=== PATIENT | male | born 1960 | race Hispanic/Latino ===

== ENCOUNTER 2022-07-21 09:00 | Observation (INO) | payer BC, OTHER ==
[~2022-07-21] VITALS: Ht 167.6 cm; Wt 73.9 kg
[2022-07-21 10:30] LABS: BASOPHILS % (AUTO) 0.2 % (0.0-5.0); EOSINOPHILS % (AUTO) 3.1 % (0.0-8.0); HEMATOCRIT 42.4 % (42-54); LYMPHOCYTES % (AUTO) 26.3 % (21.0-51.0); MEAN CORPUSCULAR HEMOGLOBIN 30.5 pg (27.0-33.0); MEAN CORPUSCULAR HGB CONC 33.3 g/dL (32.0-36.0); MEAN CORPUSCULAR VOLUME 91.6 fL (79-99); MONOCYTES % (AUTO) 9.2 % (3.0-13.0); PLATELET COUNT (AUTO) 148 K/uL (130-400); RED BLOOD CELL COUNT(AUTO) 4.63 MIL/uL (4.50-6.20); RED CELL DISTRIBUTION WIDTH 13.8 % (11.0-15.5); WHITE BLOOD COUNT (AUTO) 4.3 K/uL (4.8-10.8)
[2022-07-21 10:58] LABS: POTASSIUM 4.2 mmol/L (3.5-5.1)
[2022-07-22 13:52] VITALS: BP 129/78
[2022-07-22] MEDS ORDERED: ATOR10 PO (14:24)
[2022-07-22] MEDS ORDERED: FERR-82 PO (14:24)
[2022-07-22] MEDS ORDERED: DOCU100C33 PO (14:24)
[2022-07-22] MEDS ORDERED: DULA1.5P SQ (14:24)
[2022-07-22] MEDS ORDERED: EMPA10TA PO (14:24)
[2022-07-22] MEDS ORDERED: LISI10TA24 PO (14:24)
[2022-07-22] MEDS ORDERED: ASCO500C18 PO (14:24)
[2022-07-22] MEDS ORDERED: FOLIC ACID PO (14:24)
[2022-07-22] MEDS ORDERED: FISH1CAP27 PO (14:24)
[2022-07-22] MEDS ORDERED: METF-527 PO (14:24)
[2022-07-22] MEDS ORDERED: METO-391 PO (14:24)
[2022-07-22] MEDS ORDERED: CITA-107 PO (14:24)
[2022-07-22] MEDS ORDERED: ALPR0.5T8 PO (14:24)
[2022-07-22] MEDS ORDERED: GABA300C PO (14:24)
[2022-07-22] MEDS ORDERED: VITAMIN B12 PO (14:24)
[2022-07-22] MEDS ORDERED: OMEP40CA21 PO (14:24)
[2022-07-24] VITALS (23 sets, daily range): BP systolic 113–147; BP diastolic 49–88
[2022-07-24] MEDS ORDERED: CEFAZOLIN SODIUM 1 GM VIAL ONE ×2 (06:29→06:50)
[2022-07-24] MEDS ORDERED: 0.9%NACL 1000ML 1,000 ML IV ONE (06:30)
[2022-07-24] MEDS ORDERED: BUPIVACAINE/EPI/PF 0.25% 30ML VIAL IJ ONE (06:50)
[2022-07-24] MEDS ORDERED: THROMBIN-JMI 20000 UNIT KIT TP ONE (06:51)
[2022-07-24] MEDS ORDERED: MORPHINE PF 100MG/10ML AMP IV ONE (06:51)
[2022-07-24] MEDS ORDERED: BUPIVACAINE/EPI/PF 0.5% 30ML VIAL IJ ONE (06:52)
[2022-07-24] MEDS ORDERED: MIDAZOLAM HCL 1 MG/ML 2ML VIAL ONE (07:08)
[2022-07-24] MEDS ORDERED: GLYCOPYRROLATE 1 MG/5 ML SYRINGE ONE (07:08)
[2022-07-24] MEDS ORDERED: ROCURONIUM 10MG/1ML SYR 10 MG/ML ML ONE (07:08)
[2022-07-24] MEDS ORDERED: PROPOFOL 10 MG/ML 20ML VIAL IV ONE (07:08)
[2022-07-24] MEDS ORDERED: FENTANYL CITRATE PF 50 MCG/1 ML 2ML VIAL ONE (07:09)
[2022-07-24] MEDS ORDERED: PHENYLEPHRINE HCL 10 MG/ML 1ML VIAL IV ONE (07:09)
[2022-07-24] MEDS ORDERED: LIDOCAINE PF 100MG/5ML (2%) SYRINGE 5ML ONE (07:09)
[2022-07-24] MEDS ORDERED: ONDANSETRON 4MG INJ ONE (08:32)
[2022-07-24] MEDS ORDERED: EPHEDRINE SULFATE 50 MG/ML AMPULE ONE (09:01)
[2022-07-24] MEDS ORDERED: DEXAMETHASONE SOD PHOSPHATE 4 MG/ML 1ML VIAL ONE (10:33)
[2022-07-24] MEDS ORDERED: ALPRAZOLAM 0.5 MG TABLET PO PRN (11:00)
[2022-07-24] MEDS ORDERED: MORPHINE 2 MG SYG IVP PRN (11:00)
[2022-07-24] MEDS: DEXAMETHASONE SOD PHOSPHATE 4 MG/ML 1ML VIAL IVP SCH ×3 (11:00→23:13)
[2022-07-24] MEDS ORDERED: PROMETHAZINE HCL 25 MG/ML 1ML AMPULE IM PRN (11:00)
[2022-07-24] MEDS: CEFAZOLIN SODIUM 1 GM VIAL IVP SCH ×2 (11:00→20:00)
[2022-07-24] MEDS ORDERED: 0.9%NACL 10ML VIAL IVP PRN (11:00)
[2022-07-24] MEDS ORDERED: MEPERIDINE-PF 25 MG/ML SYG ONE ×2 (11:03→11:17)
[2022-07-24] MEDS: HYDROCODONE/ACETAMINOPHEN 5/325 MG TAB PO PRN ×3 (12:43→21:07)
[2022-07-24] MEDS: METFORMIN HCL 500 MG TAB.SR.24H PO SCH (16:55)
[2022-07-24] MEDS: LACTATED RINGERS 1000ML 1,000 ML IV SCH ×2 (16:57→23:24)
[2022-07-24] MEDS: FISH OIL 1000 MG/CAP PO SCH (20:11)
[2022-07-24] MEDS: ASCORBIC ACID 500 MG TAB PO SCH (20:11)
[2022-07-24] MEDS ORDERED: DOCUSATE SODIUM 100 MG CAP PO SCH (21:00)
[2022-07-24] MEDS ORDERED: ATORVASTATIN 10 MG TABLET PO SCH (21:00)
[2022-07-24] MEDS ORDERED: FOLIC ACID 1 MG TABLET PO SCH (21:00)
[2022-07-24] MEDS ORDERED: GABAPENTIN 300 MG CAPSULE PO SCH (21:00)
[2022-07-24] MEDS ORDERED: CYANOCOBALAMIN (VITAMIN B-12) 1,000 MCG TABLET PO SCH (21:00)
[2022-07-24] MEDS ORDERED: CITALOPRAM 20 MG TABLET PO SCH (21:00)
[2022-07-24] MEDS ORDERED: METOPROLOL SUCCINATE 50 MG TAB.SR.24H PO SCH (21:00)
[2022-07-24] MEDS: INSULIN HUMULIN R 100 UNIT/ML 3ML SQ SCH (21:24)
[2022-07-25] VITALS: BP_SYST 109; BP_SYST 113; BP_DIAS 66; BP_DIAS 75
[2022-07-25 03:55] VITALS: BP 107/64
[2022-07-25] MEDS: CEFAZOLIN SODIUM 1 GM VIAL IVP SCH (04:03)
[2022-07-25] MEDS: DEXAMETHASONE SOD PHOSPHATE 4 MG/ML 1ML VIAL IVP SCH (04:03)
[2022-07-25] MEDS: HYDROCODONE/ACETAMINOPHEN 5/325 MG TAB PO PRN (05:07)
[2022-07-25] MEDS: INSULIN HUMULIN R 100 UNIT/ML 3ML SQ SCH (06:03)
[2022-07-25 07:30] VITALS: BP 115/74
[2022-07-25] MEDS: METFORMIN HCL 500 MG TAB.SR.24H PO SCH (07:57)
[2022-07-25] MEDS: ASCORBIC ACID 500 MG TAB PO SCH (07:57)
[2022-07-25] MEDS: FISH OIL 1000 MG/CAP PO SCH (07:57)
[2022-07-25] MEDS ORDERED: **HM**JARDIANCE 10MG PO SCH (09:00)
[2022-07-25] MEDS ORDERED: LISINOPRIL 10 MG TABLET PO SCH (09:00)
[2022-07-25] MEDS ORDERED: PANTOPRAZOLE 40 MG TAB DR PO SCH (09:00)
[2022-07-31] MEDS ORDERED: **HM**TRULICITY 1.5MG SQ SCH (09:00)
== END 2022-07-25 10:32 | disposition home or self-care (01) ==
LOC: EDSTATUS 09:00 → DAHIP 07-24 05:56 → 4BH 07-24 11:43
PROVIDERS: ADMIT Neurological Surgery; ATTEND Neurological Surgery
DX: M48.061 Spinal stenosis, lumbar region without neurogenic claudication (principal); Z20.822 Contact with and (suspected) exposure to COVID-19; E11.42 Type 2 diabetes mellitus with diabetic polyneuropathy; G47.33 Obstructive sleep apnea (adult) (pediatric); I10 Essential (primary) hypertension; E78.5 Hyperlipidemia, unspecified; K21.9 Gastro-esophageal reflux disease without esophagitis; Z79.899 Other long term (current) drug therapy
CPT/HCPCS: 80051; 85025; 87426; 36415; 63047; 63048 ×3; 96374; 96376 ×2; 96372; 96375; 82948 ×5; 72020; G0378 ×23; G0379; A4510; A4663; J7120 ×2; A4344; J3010; J0690 ×4; J3490 ×4; J7030; J2001; J2250; J2704; J2274; J2405; J1100 ×4; J2175 ×2; J2370; J1815; A4649 ×2; A4215; A4223; A4222; A4221; A4600

== ENCOUNTER 2025-08-19 15:02 | Observation (INO) | payer BC, MEDICARE, OTHER ==
[~2025-08-19] VITALS: Ht 167.6 cm; Wt 66.2 kg
[~2025-08-19 15:02] MED LIST: ALPR0.5T8 PO; ASCO500C18 PO; ATOR10 PO; CITA-107 PO; DOCU100C33 PO; DULA1.5P SQ; EMPA10TA PO; FERR-82 PO; FISH1CAP27 PO; FOLIC ACID PO; GABA300C PO; LISI10TA24 PO; METF-527 PO; METO-391 PO; OMEP40CA21 PO; VITAMIN B12 PO
[2025-08-19] MEDS ORDERED: 0.9%NACL 1000ML 1,000 ML IV ONE (15:30)
[2025-08-19] MEDS ORDERED: FAMOTIDINE 20MG VIAL IV ONE (15:30)
[2025-08-19] MEDS: FAMOTIDINE 20MG VIAL IV ONE (15:37)
[2025-08-19] MEDS: 0.9%NACL 1000ML 1,000 ML IV ONE (15:37)
--- NOTE | 2025-08-19 16:21 | EKG ---
[facility] Test Date: 2025-08-19 Test Time: 16:13:32 Pat Name: JACKI SIMMONS Department: ED Room: 430 Gender: M Healthcare Administrator: [id number] : [id number] Requested By: LEANA COURTNEY Order Number: [id number] Reading MD: Brian Chatterjee Measurements Intervals [place] Rate: 101 P: 53 NH: 148 QRS: -21 QRSD: 111 T: 54 QT: 377 QTc: 488 Interpretive Statements Sinus tachycardia No previous ECG available for comparison Electronically Signed On 08-21-2025 12:49:26 CDT by Brian Chatterjee Please click the below link to view image of tracing.
[2025-08-19 16:28] LABS: IMMATURE GRANULOCYTE ABSOLUTE 0.02 K/uL (0-1); NUCLEATED RED BLOOD CELLS 0.0 % (0.0-0.19); PLATELET COUNT (AUTO) 185 K/uL (130-400); RED BLOOD CELL COUNT(AUTO) 5.17 MIL/uL (4.50-6.20); RED CELL DISTRIBUTION WIDTH 13.2 % (11.0-15.5); WHITE BLOOD COUNT (AUTO) 3.6 K/uL (4.8-10.8)
[2025-08-19 16:47] LABS: CREATININE 1.2 mg/dL (0.5-1.3); GLOMERULAR FILTR. RATE CALC 66.0 mL/min (>90); GLUCOSE,RANDOM 140.0 mg/dL (70-105); SODIUM SERUM 144.0 mmol/L (136-145); UREA NITROGEN, BLOOD 23.0 mg/dL (7-18)
--- NOTE | 2025-08-19 16:48 | NUR ---
PT ONE BOUT OF EMISIS AND REPORTING ABD DISCOMFORT AFTERWARD 4 MG ONDANSATRON ADMIN NO FURTHER NAUSEA
--- NOTE | 2025-08-19 17:38 | ERN ---
General Chief Complaint: Allergic Reaction Stated Complaint: BEE STINGS Time Seen by MD: 15:18 Time Seen by Midlevel: 15:18 Source: patient History of Present Illness Initial Comments 65-year-old male presents to the emergency department for he sustained multiple bee stings the face and upper torso. Patient estimates about 50 bee stings. On arrival the patient reports feeling nauseous Allergies: Coded Allergies: No Known Drug Allergies (Unverified Allergy, Unknown, 07/22/22) Home Meds Reported Medications Alprazolam (Alprazolam) 0.5 Mg Tablet, 0.5 MG PO TID PRN for ANXIETY, TAB 07/22/22 Docusate Sodium (Docusate Sodium) 100 Mg Capsule, 100 MG PO HS, CAP 07/22/22 Gabapentin (Neurontin) 300 Mg Capsule, 300 MG PO HS, CAP 07/22/22 [Vitamin B12] No Conflict Check, 500 MCG PO HS 07/22/22 [Folic Acid] No Conflict Check, 1 MG PO HS 07/22/22 Citalopram Hydrobromide (Citalopram HBr) 20 Mg Tablet, 20 MG PO HS, TAB 07/22/22 Metoprolol Succinate (Metoprolol Succinate) 50 Mg Tab.er.24h, 50 MG PO HS, TAB 07/22/22 Dulaglutide (Trulicity) 1.5 Mg/0.5 Ml Pen.injctr, 1.5 MG SQ QWEEK EVERY 07/22/22 Empagliflozin (Jardiance) 10 Mg Tablet, 10 MG PO DAILY, TAB 07/22/22 Ascorbic Acid (Vitamin C) 500 Mg Capsule, 500 MG PO BID, CAP 07/22/22 [place]-3 Fatty Acids/Fish Oil ([place] 3 1,000 mg Softgel) 1 Each Capsule, 1 EACH PO BID, CAP 07/22/22 Ferrous Sulfate (Iron) 325 Mg Tablet, 325 MG PO BID, TAB 07/22/22 Omeprazole (Omeprazole) 40 Mg Capsule.dr, 40 MG PO DAILY, CAP 07/22/22 Metformin HCl (Metformin HCl ER) 1,000 Mg Tab.er.24, 1000 MG PO BID 07/22/22 Atorvastatin Calcium (LIPITOR) 10 Mg Tab, 10 MG PO HS, TAB 07/22/22 Lisinopril (Lisinopril) 10 Mg Tablet, 10 MG PO DAILY, TAB 07/22/22 Past Medical History Past Medical History: Diabetes-Type II, Hypertension Past Surgical History: Other Surgical History Other: BACK SURGERY. HERNIA REPAIR. ARM SURGERY ROS Dictation CONSTITUTIONAL: Negative except for HPI HEAD/FACE: Negative except for HPI EENT: Negative except for HPI RESPIRATORY: Negative except for HPI GASTROINTESTINAL/ABDOMINAL: Negative except for HPI GENITOURINARY: Negative except for HPI MUSCULOSKELETAL: Negative except for HPI INTEGUMENTARY: Negative except for HPI NEUROLOGICAL/PSYCH: Negative except for HPI HEMATOLOGIC/LYMPHATIC: Negative except for HPI All Systems Negative, Except as noted above. 13 point review of systems assessed and all negative except for above. Physical Exam Physical Exam Dictation Vital Signs reviewed General Appearance: Alert, oriented x 3, no acute distress, well developed, nourished. Head and Face: non-traumatic. Eyes: PERRL, pink conjunctivas, eyelid no trauma, anterior chamber with arcus senilis. Ears: Pinnas intact and no signs of trauma or erythema ear canals clear and no discharge TM no erythema Nose: No discharge, no bleeding. Oropharynx: Mouth normal, tongue pink, pharynx clear,no erythema, tonsils no exudates, no abscesses noted, mucous memb gloria moist Neck: Supple, non-tender, no thyromegaly, no masses, no JVD, no bruits Breast:Deferred Chest:No tenderness, no crepitus, no paradoxical movement, no retractions Lungs:Clear, well-ventilated, symmetric, no rales, no wheezing, no rhonchi, no s tridor, good breath sounds bilaterally Heart: Regular rate, regular rhythm, no murmur, no gallops Vascular: no peripheral edema, Abdomen: Soft, positive bowel sounds, nondistended, no guarding, nontender, no rebound, no masses no hepatomegaly, no splenomegaly, no Vázquez's sign, no hernias. Rectal: Deferred Genital: Deferred Neurological: Normal speech, motor function intact, sensory function intact Musculoskeletal: Neck nontender, full range of motion, back nontender, full range of motion, Extremities: nontender, full range of motion Skin: Color pink, dry, no turgor, no rash, no lacerations, no abrasions, no contusions. Lymphatic: Deferred Results Laboratory and Microbiology Lab and Micro Result Laboratory Tests Test 9/27/25 16:22 White Blood Count 3.6 K/uL (4.8-10.8) L Red Blood Count 5.17 MIL/uL (4.50-6.20) Hemoglobin 15.7 g/dL (14.0-18.0) Hematocrit 46.4 % (42-54) Mean Corpuscular Volume 89.7 fL (79-99) Mean Corpuscular Hemoglobin 30.4 pg (27.0-33.0) Mean Corpuscular Hemoglobin Concent 33.8 g/dL (32.0-36.0) Red Cell Distribution Width 13.2 % (11.0-15.5) Platelet Count 185 K/uL (130-400) Mean Platelet Volume 10.5 fL (7.5-10.5) Immature Granulocyte % (Auto) 0.6 % (0-1) Neutrophils (%) (Auto) 70.3 % (40.0-77.0) Lymphocytes (%) (Auto) 27.7 % (21.0-51.0) Monocytes (%) (Auto) 1.4 % (3.0-13.0) L Eosinophils (%) (Auto) 0.0 % (0.0-8.0) Basophils (%) (Auto) 0.0 % (0.0-5.0) Neutrophils # (Auto) 2.5 K/uL (1.8-7.7) Lymphocytes # (Auto) 1.0 K/uL (1.0-4.8) Monocytes # (Auto) 0.1 K/uL (0.1-1.0) Eosinophils # (Auto) 0.00 K/uL (0.00-0.70) Basophils # (Auto) 0.00 K/uL (0.00-0.20) Absolute Immature Granulocyte (auto 0.02 K/uL (0-1) Nucleated Red Blood Cells 0.0 % (0.0-0.19) Sodium Level 144 mmol/L (136-145) Potassium Level 4.2 mmol/L (3.5-5.1) Chloride Level 107 mmol/L (101-111) Carbon Dioxide Level 25 mmol/L (21-32) Blood Urea Nitrogen 23 mg/dL (7-18) H Creatinine 1.2 mg/dL (0.5-1.3) Glomerular Filtration Rate Calc 66 mL/min (>90) Random Glucose 140 mg/dL (70-105) H Total Calcium 9.4 mg/dL (8.5-10.1) Troponin I High Sensitivity 13 ng/L (4-75) Labs Reviewed?: Yes MDM MDM: Differential diagnosis: Acute allergic reaction, acute coronary syndrome, w bee sting Rationale: Tests considered and ordered secondary to shared decision making include: Previous outside records reviewed: Old ER visits. Risk of complication and/or morbidity or mortality of patient management: None Medications-Per medication reconciliation Need for hospitalization: Patient does meet criteria for hospitalization. Need for emergency major/minor surgery: No There are no social concerns with this patient. Prescription drug management Prescriptions will include symptomatic care Patient's prior external medical records from other ER visits were reviewed by me as indicated. Prior testing and results from previous visits were reviewed. Prior tests were taken into account with medical decision making and resource utilization, independent historian/historians were used to obtain complete [facility] history. I independently interpreted the test that were performed, results were reviewed by me and considered findings on radiology if ordered. Medical management and examination interpretation discussions were had by me with other qualified healthcare professionals as indicated for the patient's care. ED Course Orders Procedure Category Date Status Time 0.9%Nacl 1000ml (Ns PHA 08/19/25 Complete 1000ml) 15:30 Methylprednisolone PHA 08/19/25 Complete Succ 125mg (Solu-Medr 16:00 Famotidine 20mg Vial PHA 08/19/25 Complete (Pepcid 20mg Vial) 15:30 0.9%Nacl 1000ml (Ns PHA 08/19/25 Complete 1000ml) 15:30 Methylprednisolone PHA 08/19/25 Complete Succ 125mg (Solu-Medr 15:30 Famotidine 20mg Vial PHA 08/19/25 Complete (Pepcid 20mg Vial) 15:30 12 Lead Ekg Tracing- EKG 08/19/25 Complete Technical 16:09 Cbc With Differential LAB 08/19/25 Complete 16:09 Basic Metabolic Panel LAB 08/19/25 Complete 16:09 Troponin I High LAB 08/19/25 Complete Sensitivity 16:09 Ondansetron 4mg Inj PHA 08/19/25 Complete (Zofran 4mg Inj) 16:30 Current Medications Medications (Trade) Dose Ordered Sig/Lizette Route PRN Reason Start Time Stop Time Status Last Admin Dose Admin Famotidine (Pepcid 20mg Vial) 20 mg ONCE ONCE IV 08/19/25 15:30 08/19/25 15:29 DC Famotidine (Pepcid 20mg Vial) 20 mg ONCE ONCE IV 08/19/25 15:30 08/19/25 15:31 DC 08/19/25 15:37 Methylprednisolone Sodium Succinate (Solu-medROL 125MG) 125 mg ONCE ONCE IVP 08/19/25 15:30 08/19/25 15:30 DC Methylprednisolone Sodium Succinate (Solu-medROL 125MG) 125 mg ONCE ONCE IVP 08/19/25 16:00 08/19/25 16:01 DC 08/19/25 15:37 Ondansetron HCl (zoFRAN 4MG INJ) 4 mg ONCE ONCE IVP 08/19/25 16:30 08/19/25 16:31 DC 08/19/25 16:15 Sodium Chloride 1,000 ml @ 0 mls/hr ONCE ONCE IV 08/19/25 15:30 08/19/25 15:29 DC Sodium Chloride 1,000 ml @ 0 mls/hr ONCE ONCE IV 08/19/25 15:30 08/19/25 15:31 DC 08/19/25 15:37 Vital Signs Date Time Temp Pulse Resp B/P (MAP) Pulse Ox O2 Delivery O2 Flow Rate FiO2 08/19/25 17:44 98.1 102 12 130/76 100 Room Air* 0 08/19/25 16:47 98.1 96 16 150/91 98 Room Air* 0 08/19/25 15:16 98.1 90 16 145/90 98 Room Air* 0 08/19/25 15:04 98.1 92 13 146/91 99 Room Air 0 DX & DISP Disposition: Inpatient Departure Impression: Primary Impression: Acute allergic reaction Additional Impression: Bee sting allergy Condition: Stable Referrals: THAIS MCMILLAN (PCP) I have reviewed the case, and I agree with, Diagnosis and Plan I performed the substantive portion of the visit. I have reviewed and personally made and approve the management plan that is documented in the note by myself or the HANNY. I acknowledge for responsibility for the patient's management plan. LEANA COURTNEY Aug 19, 2025 17:38
--- NOTE | 2025-08-19 17:54 | NUR ---
TRANSFERED CARE TO [facility] AT THIS TIME
--- NOTE | 2025-08-19 18:00 | NUR ---
WILL BRING HOME MEDICATIONS LATER. NO MEDS TO RECONCILE AT THIS TIME
[2025-08-19] MEDS ORDERED: DEXTROSE 50%-WATER 50 ML DISP.SYRIN IV PRN (19:00)
[2025-08-19] MEDS ORDERED: GLUCAGON 1MG KIT 1 MG ML IM PRN (19:00)
[2025-08-19] MEDS ORDERED: PoTASSium chl 10% ELIXIR 20MEQ 20 MEQ/15 ML UDCUP PO PRN (19:00)
[2025-08-19] MEDS ORDERED: PoTASSium chloRIDE 20MEQ ER 20 MEQ ERTAB PO PRN (19:00)
--- NOTE | 2025-08-19 19:10 | HP ---
[facility] Date of Service: Aug 19, 2025 Time of Service: 18:52 PCP: Ewelina Cobb HISTORY OF PRESENT ILLNESS: This is a 65-year-old male with past medical history of lumbar spinal stenosis, peripheral neuropathy, diabetes, hypertension and hyperlipidemia who presents to the ED for complaints of multiple bee stings on the face ,neck and upper body parts today.Patient states he has an acre of land and he was mowing his lawn when multiple bee attacked him and he jumped into the water to make it sto p.Patient immediately decided to come to the ED because he started becoming nauseated and vomited 2 episodes.Patient complained of headache as well.On examination patient is awake,alert ,coherent and speech is clear no difficulty swallowing..Patient denies chest tightness,/pain ,palpitation & shortness of breath.On ECG result showed ST 101.Latest V/S 98.1,HR 103,BP 137/89 and Satu ration 99% RA.Labs : WBC 3.6,mono 1.4 otherwise normal CBC result.BUN 23 and Glucose 140 Troponin 13.While in the ER patient received 1L NS bolus,Solumedrol 125mg IV Famotidine 20mg IV and Zofran 4 mg IV.ER called and recommended to admit the patient for further observation. REVIEW OF SYSTEMS CONSTITUTIONAL: Denies fevers, chills, or night sweats. No unintentional weight loss reported. NEUROLOGICAL: Denies headache, amaurosis fugax, motor weakness, sensory deficit, vertigo/spinning sensation, gait abnormalities, or tremors. ENT: No hearing loss, otalgia, otorrhea, rhinitis, rhinorrhea, hoarseness, or sore throat. CARDIOVASCULAR: Denies any exertional angina, dyspnea on exertion, orthopnea, paroxysmal nocturnal dyspnea, palpitations, life-threatening arrhythmias, c laudication. PULMONARY: Denies any shortness of breath, cough, phlegm/sputum, hemoptysis, pleuritic chest pain. SLEEP: Denies morning headaches, daytime somnolence or napping. Denies difficulty falling asleep, staying asleep, waking from sleep. Denies knowledge of snoring. GASTROINTESTINAL: Denies any type of dysphagia to either liquids or solids. Denies nausea, vomiting, pyrosis, early satiety, abdominal pain, diarrhea, cons tipation, or changes in stool consistency or caliber. Denies coffee-ground emesis, hematemesis, hematochezia, or melanotic stools. GENITOURINARY: Denies frequency, urgency, nocturia, hematuria or incontinence (Storage/Irritative symptoms.) Low urinary stream, straining to void, urinary intermittency or hesitancy, splitting of the voiding stream, terminal dribbling. ENDOCRINOLOGIC: Denies polyuria, polydipsia, polyphagia or heat/cold intolerances. HEMATOLOGIC: Denies thrombophilia/previous clots, or coagulopathy/bleeding disorders. ONCOLOGIC: Denies personal history of malignancy. DERMATOLOGIC: Denies rashes or pruritus. PSYCHIATRIC: Denies any suicidal or homicidal ideation. Denies hallucinations. PAST MEDICAL HISTORY: [lumbar spinal stenosis, peripheral neuropathy, diabetes, hypertension and hyperlipidemia ] PAST SURGICAL HISTORY: [ Back surgery,umbilical hernia repair,Right forearm surgery 2/2 fracture and fall. ] PAST SOCIAL HISTORY: [ Patient lives with .Patient denies alcohol,cigarette and recreational drug use ] FAMILY HISTORY: [ hypertension,cardiovascular disease and Alzheimer's disease] Coded Allergies: No Known Drug Allergies (Unverified Allergy, Unknown, 07/22/22) PHYSICAL EXAM GENERAL APPEARANCE: The patient is awake, alert, and oriented, in no acute cardiopulmonary distress. NEUROLOGICAL: Cranial nerves II-XII grossly intact. Motor is 5/5 in bilateral upper and lower extremities proximal to distal. No sensory deficits. HEENT: Face is symmetric. Pupils are equal and reactive. Extraocular movements are intact. NECK: Supple. No JVD. No thyromegaly. No submental, submandibular, pre- /postauricular, occipital or supraclavicular lymphadenopathy. CHEST: Normal chest expansion. No Telemetry. LUNGS: Absence of any rales, rhonchi or any wheezing. CARDIOVASCULAR: Regular. S1 and S2 normal. No appreciable rubs, murmurs or gallops. ABDOMEN: Soft, nontender, and nondistended. There is no rebound, voluntary guarding, or rigidity. : Deferred. No Vásquez. EXTREMITIES: Non-edematous and not cyanotic. No clubbing. Good capillary refill. SKIN: No skin breakdown. Vital Sign (Last 24 Hours) 08/19/25 17:44 Temp 98.1 Pulse 102 Resp 12 B/P (MAP) 130/76 Pulse Ox 100 O2 Delivery Room Air* O2 Flow Rate 0 FiO2 21 LABS: Laboratory: Test 08/19/25 16:22 Range/Units White Blood Count 3.6 L 4.8-10.8 K/uL Red Blood Count 5.17 4.50-6.20 MIL/uL Hemoglobin 15.7 14.0-18.0 g/dL Hematocrit 46.4 42-54 % Mean Corpuscular Volume 89.7 79-99 fL Mean Corpuscular Hemoglobin 30.4 27.0-33.0 pg Mean Corpuscular Hemoglobin Concent 33.8 32.0-36.0 g/dL Red Cell Distribution Width 13.2 11.0-15.5 % Platelet Count 185 130-400 K/uL Mean Platelet Volume 10.5 7.5-10.5 fL Immature Granulocyte % (Auto) 0.6 0-1 % Neutrophils (%) (Auto) 70.3 40.0-77.0 % Lymphocytes (%) (Auto) 27.7 21.0-51.0 % Monocytes (%) (Auto) 1.4 L 3.0-13.0 % Eosinophils (%) (Auto) 0.0 0.0-8.0 % Basophils (%) (Auto) 0.0 0.0-5.0 % Neutrophils # (Auto) 2.5 1.8-7.7 K/uL Lymphocytes # (Auto) 1.0 1.0-4.8 K/uL Monocytes # (Auto) 0.1 0.1-1.0 K/uL Eosinophils # (Auto) 0.00 0.00-0.70 K/uL Basophils # (Auto) 0.00 0.00-0.20 K/uL Absolute Immature Granulocyte (auto 0.02 0-1 K/uL Nucleated Red Blood Cells 0.0 0.0-0.19 % Sodium Level 144 136-145 mmol/L Potassium Level 4.2 3.5-5.1 mmol/L Chloride Level 107 101-111 mmol/L Carbon Dioxide Level 25 21-32 mmol/L Blood Urea Nitrogen 23 H 7-18 mg/dL Creatinine 1.2 0.5-1.3 mg/dL Glomerular Filtration Rate Calc 66 >90 mL/min Random Glucose 140 H 70-105 mg/dL Total Calcium 9.4 8.5-10.1 mg/dL Troponin I High Sensitivity 13 4-75 ng/L DIAGNOSTICS / RADIOLOGY: [ ] ASSESSMENT: Allergic reaction to multiple bee stings POA Hypertension POA Diabetes POA Hyperlipidemia POA PLAN: We will admit patient in medical surgical for observation We will start on consistent carb diet We will start on solumedrol 40 mg IV x 1 dose in am patient received 125 mg IV today We will start NS @ 100 ml / hr x 1bag and re evaluate We will start on Famotidine 20 mg IV bid for GI prophylaxis We will replace electrolytes as needed per protocol We will start on insulin sliding scale AC & HS with hypoglycemia protocol We will add prn medication for fever,pain,cough , nausea and vomiting We will reconcile home meds once medlist available We will request labs in am Further orders to follow depending on above results Case discussed with attending physician and came up with above treatment and plan of care. ADVANCED CARE PLANNING 1. Which of the following were discussed? Hospice Care - No Therapeutic options - Yes Advance Directives - No Other discussions - 2. Discussed with who? Patient 3. Voluntary nature of this service was explained to the patient? Yes 4. Amount of time spent - _22 min 5. Reviewed by Physician? (if this service was performed by NPP) Yes Patient seen and examined by me. Agree with note by WAGE AND HOUR INVESTIGATOR SEE ADDITIONAL ORDERS PER CHART DISCUSSED WITH NURSING STAFF COLLETTE SUAZO CARDIOVASCULAR SURGICAL TECH Aug 19, 2025 19:10
--- NOTE | 2025-08-19 19:11 | NUR ---
REPORT GIVEN TO LOUIE ADAM
[2025-08-19] MEDS: 0.9%NACL 1000ML 1,000 ML IV SCH (19:57)
[2025-08-19] MEDS: Solu-medROL 40MG VIAL IVP ONE (19:57)
[2025-08-19 22:24] VITALS: BP 137/80; PULSE 93; RESP 20; TEMP 97.8
--- NOTE | 2025-08-19 22:25 | NUR ---
admit note admit [facility] room 430 via stretcher from er, patient awake alert, ox3, no sob, no c/o pain, no wheezing, no family at bedside, ivf infusing well teach patient plan of care and expected outcome, patient verbalizes understanding via teach back
[2025-08-20] VITALS: BP 118/77; PULSE 90; RESP 20; TEMP 97.6
[2025-08-20 04:00] VITALS: BP 111/69; PULSE 86; RESP 20; TEMP 97.9
[2025-08-20 05:54] LABS: IMMATURE GRANULOCYTE ABSOLUTE 0.03 K/uL (0-1); NUCLEATED RED BLOOD CELLS 0.0 % (0.0-0.19); PLATELET COUNT (AUTO) 162 K/uL (130-400); RED BLOOD CELL COUNT(AUTO) 4.62 MIL/uL (4.50-6.20); RED CELL DISTRIBUTION WIDTH 13.7 % (11.0-15.5); WHITE BLOOD COUNT (AUTO) 8.8 K/uL (4.8-10.8)
[2025-08-20 06:28] LABS: ASPARTATE AMINOTRANSFERASE 26.0 U/L (10-37); CREATININE 1.2 mg/dL (0.5-1.3); GLOMERULAR FILTR. RATE CALC 66.0 mL/min (>90); GLUCOSE,RANDOM 159.0 mg/dL (70-105); SODIUM SERUM 141.0 mmol/L (136-145); TOTAL PROTEIN, SERUM 6.6 g/dL (6.0-8.3); UREA NITROGEN, BLOOD 26.0 mg/dL (7-18)
[2025-08-20 06:34] LABS: ERYTHROCYTE SEDIMENTATION RATE 3 MM/HR (0-20)
[2025-08-20 08:00] VITALS: BP 120/79; PULSE 95; RESP 20; TEMP 97.8
[2025-08-20 08:02] VITALS: O2SAT 98
[2025-08-20] MEDS: MAGNESIUM 2GM PREMIX 50ML 50 ML IV PRN (08:41)
[2025-08-20] MEDS: FAMOTIDINE 20MG VIAL IV SCH (08:41)
[2025-08-20] MEDS ORDERED: EPIN0.3P3 IM (11:14)
[2025-08-20 12:00] VITALS: BP 102/61; PULSE 43; RESP 18; TEMP 98.1
--- NOTE | 2025-08-20 12:49 | NUR ---
discharge instructions given to patient on follow up appointment. iv catheter removed and intact. pt pending transportation to arrive. pt verbalized understanding. Addendum: 08/20/25 at 1337 by MJ FAIR LVN LVN patient went downstairs with significant other. no further comments.
--- NOTE | 2025-08-21 09:42 | DS ---
Discharge Summary Hospital Course Summary: Date of service 08/20/2025 The patient admitted to the hospital August 19, 2025 with the following history of the present illness: This is a 65-year-old male with past medical history of lumbar spinal stenosis, peripheral neuropathy, diabetes, hypertension and hyperlipidemia who presents to the ED for complaints of multiple bee stings on the face ,neck and upper body parts today.Patient states he has an acre of land and he was mowing his lawn when multiple bee attacked him and he jumped into the water to make it stop.Patient immediately decided to come to the ED because he started becoming nauseated and vomited 2 episodes.Patient complained of headache as well.On exa mination patient is awake,alert ,coherent and speech is clear no difficulty swallowing..Patient denies chest tightness,/pain ,palpitation & shortness of breath.On ECG result showed ST 101.Latest V/S 98.1,HR 103,BP 137/89 and Saturation 99% RA.Labs : WBC 3.6,mono 1.4 otherwise normal CBC result.BUN 23 and Glucose 140 Troponin 13.While in the ER patient received 1L NS bolus,Solumedrol 125mg IV Famotidine 20mg IV and Zofran 4 mg IV.ER called and recommended to admit the patient for further observation. 08/20 PCB at bedside, alert oriented x3, hemodynamically stable, afebrile, saturating normal on room air, denies dizziness, no headache, no blurry vision, no chest pain, no shortness a breath, no nausea, no vomiting, no abdominal discomfort, tolerating diet well, no diarrhea, no constipation, no melena, no hematochezia, no hematemesis, no hematuria, no dysuria. Patient would like to be discharged home. Assessment/Plan: Final diagnosis Allergic reaction to multiple bee stings POA Hypertension POA Diabetes POA Hyperlipidemia POA Discharge Instructions: Patient to follow with PCP as an outpatient. Return to hospital if condition changes. Patient agreed and understood the information provided. Home Medications: Active Scripts Epinephrine (Epipen 2-Danish) 0.3 Mg/0.3 Ml Auto.injct, 1 SYR IM ONCE PRN for a naphylaxis for 1 Day, #1 PACKET 1 Refill Prov:BENJIE NICOLAS MD 08/20/25 Reported Medications Alprazolam (Alprazolam) 0.5 Mg Tablet, 0.5 MG PO TID PRN for ANXIETY, TAB 07/22/22 Docusate Sodium (Docusate Sodium) 100 Mg Capsule, 100 MG PO HS, CAP 07/22/22 Gabapentin (Neurontin) 300 Mg Capsule, 300 MG PO HS, CAP 07/22/22 [Vitamin B12] No Conflict Check, 500 MCG PO HS 07/22/22 [Folic Acid] No Conflict Check, 1 MG PO HS 07/22/22 Citalopram Hydrobromide (Citalopram HBr) 20 Mg Tablet, 20 MG PO HS, TAB 07/22/22 Metoprolol Succinate (Metoprolol Succinate) 50 Mg Tab.er.24h, 50 MG PO HS, TAB 07/22/22 Dulaglutide (Trulicity) 1.5 Mg/0.5 Ml Pen.injctr, 1.5 MG SQ QWEEK EVERY 07/22/22 Empagliflozin (Jardiance) 10 Mg Tablet, 10 MG PO DAILY, TAB 07/22/22 Ascorbic Acid (Vitamin C) 500 Mg Capsule, 500 MG PO BID, CAP 07/22/22 [place]-3 Fatty Acids/Fish Oil ([place] 3 1,000 mg Softgel) 1 Each Capsule, 1 EACH PO BID, CAP 07/22/22 Ferrous Sulfate (Iron) 325 Mg Tablet, 325 MG PO BID, TAB 07/22/22 Omeprazole (Omeprazole) 40 Mg Capsule.dr, 40 MG PO DAILY, CAP 07/22/22 Metformin HCl (Metformin HCl ER) 1,000 Mg Tab.er.24, 1000 MG PO BID 07/22/22 Atorvastatin Calcium (LIPITOR) 10 Mg Tab, 10 MG PO HS, TAB 07/22/22 Lisinopril (Lisinopril) 10 Mg Tablet, 10 MG PO DAILY, TAB 07/22/22 Time spent arranging discharge: 31-60 minutes BENJIE NICOLAS MD Aug 21, 2025 09:42
== END 2025-08-20 13:10 | disposition home or self-care (01) ==
LOC: EDH 15:02 → EDHIP 18:55 → 4AH 22:14
PROVIDERS: ADMIT Internal Medicine; ATTEND Internal Medicine
DX: T63.441A Toxic effect of venom of bees, accidental (unintentional), initial encounter (principal); I10 Essential (primary) hypertension; E78.5 Hyperlipidemia, unspecified; E11.42 Type 2 diabetes mellitus with diabetic polyneuropathy; Y92.89 Other specified places as the place of occurrence of the external cause; Z79.899 Other long term (current) drug therapy
CPT/HCPCS: 96374; 96376 ×2; 96375 ×2; 99284; 84484; 80048; 85025 ×2; 82948 ×3; 36415 ×2; 93005; 83735; 80053; 85651; G0378 ×18; J1308 ×2; J7030; J2919 ×2; J2405; J3475; J1815